=== PATIENT | female | born 1965 | race American Indian/Alaskan Native ===

== ENCOUNTER 2017-01-15 11:50 | Day surgery (SDC) | payer BC, OTHER ==
[2017-01-14 12:08] LABS: ASPARTATE AMINO TRANSFERASE 20 U/L (15-37); BLOOD UREA NITROGEN 10 mg/dL (7-18)
[~2017-01-15] VITALS: Ht 162.6 cm; Wt 99.0 kg
[~2017-01-15 11:50] MED LIST: HYDR-3144 PO; IRON PO; LIDO700A5 TD; LOSA50TA6 PO; OMEP-110 PO; PREG100C PO; PRENATAL PO; VITAMIN B12 PO; ZINC PO; ZOLP10TA PO
[2017-01-15 12:25] VITALS: BP 159/52
[2017-01-15] MEDS ORDERED: LACTATED RINGERS 1,000 ML IV SCH (12:25)
[2017-01-15] MEDS ORDERED: MIDAZOLAM 1 MG/ML, 2ML ONE (13:01)
[2017-01-15] MEDS ORDERED: FENTANYL PF 250 MCG/5ML ONE (13:01)
[2017-01-15] MEDS ORDERED: ROPIvacaine/PF 0.5%, 30 ML ONE (13:17)
[2017-01-15] MEDS ORDERED: KETOROLAC 30 MG/1 ML ONE (13:38)
[2017-01-15] MEDS ORDERED: CEFAZOLIN 1,000 MG ONE (13:38)
[2017-01-15] MEDS ORDERED: ONDANSETRON 2MG/ML, 2ML ONE (13:38)
[2017-01-15] MEDS ORDERED: DEXAMETHASONE 4 MG/ML, 5ML ONE (13:38)
[2017-01-15] MEDS ORDERED: PROPOFOL 10 MG/ML, 20ML ONE (13:38)
[2017-01-15] MEDS ORDERED: LIDOCAINE 0.5%-EPI 1:200K, 50ML INFIL ONE (13:58)
[2017-01-15] MEDS ORDERED: FENTANYL PF 100 MCG/2ML ONE ×2 (14:27→15:04)
[2017-01-15] MEDS ORDERED: OXYcodone 5 MG/5 ML ORAL.SOL UDC ONE ×2 (14:27→14:52)
[2017-01-15] MEDS: FENTANYL PF 100 MCG/2ML IV PRN ×3 (14:29→15:06)
[2017-01-15] MEDS ORDERED: hydrALAzine 20 MG/ML, 1ML IV PRN (14:30)
[2017-01-15] MEDS ORDERED: ACETAMINOPHEN 325 MG TABLET PO PRN (14:30)
[2017-01-15] MEDS ORDERED: PROMETHAZINE 25 MG/ML, 1ML IV PRN (14:30)
[2017-01-15] MEDS ORDERED: METOPROLOL 1 MG/ML, 5ML IV PRN (14:30)
[2017-01-15] MEDS: OXYcodone 5 MG/5 ML ORAL.SOL UDC PO PRN ×2 (14:32→15:00)
[2017-01-15] MEDS ORDERED: ACETAMINOPHEN 325 MG TABLET ONE (15:05)
[2017-01-15] MEDS ORDERED: MORPHINE SULFATE 4 MG/ML, 1ML ONE (16:05)
[2017-01-15] MEDS ORDERED: MORPHINE SULFATE 4 MG/ML, 1ML IVPush PRN (16:30)
[2017-01-15] MEDS ORDERED: OXYcodone IR 5MG TABLET ONE (17:04)
[2017-01-15] MEDS ORDERED: OXYcodone IR 5MG TABLET PO PRN (17:30)
== END 2017-01-15 17:45 | disposition home or self-care (01) ==
LOC: OUT 11:50
PROVIDERS: ATTEND Orthopaedic Surgery
DX: M23.241 Derangement of anterior horn of lateral meniscus due to old tear or injury, right knee (principal); M23.251 Derangement of posterior horn of lateral meniscus due to old tear or injury, right knee; M65.861 Other synovitis and tenosynovitis, right lower leg; M17.11 Unilateral primary osteoarthritis, right knee; M25.761 Osteophyte, right knee; I10 Essential (primary) hypertension; K21.9 Gastro-esophageal reflux disease without esophagitis; E11.40 Type 2 diabetes mellitus with diabetic neuropathy, unspecified
CPT/HCPCS: 29881; 36415; 80053; 82962; 93005; J0690; J1100; J1885; J2250; J2405; J2704; J2795; J3010; J7120